=== PATIENT | female | born 1955 | race Caucasian/White ===

== ENCOUNTER 2017-04-23 22:14 | Emergency (ER) | payer OTHER ==
[2017-04-23 22:23] VITALS: BMI 41.1
--- NOTE | 2017-04-23 23:00 | PDOC ---
History of Present Illness - General History Source: Patient Exam Limitations: No Limitations - History of Present Illness Initial Comments: 04/23/17 23:13 The patient is a 61-year-old female, with a significant past medical history of HTN, who presents to the ED with two episodes of nosebleed today. First episode was in the morning and the patient went to urgent care where they checked her BP which appeared to be normal. Pt reports to the ED this evening for nosebleed as well. On exam, patient is lying down comfortably and states that she feels the blood doing down her throat. She reports headache. She denies any chest pain or shortness of breath. She does report hx of aneurysm. <Mandi Ahumada - Last Filed: 04/23/17 23:13> - General History Source: Patient <Marcus Medrano - Last Filed: 04/24/17 00:50> - General Chief Complaint: Nasal Bleeding Stated Complaint: Nasal Bleeding Time Seen by Provider: 04/23/17 22:57 Past History <Mandi Ahumada - Last Filed: 04/23/17 23:13> - Past Medical History HTN: Yes - Surgical History Abdominal Surgery: Yes Cholecystectomy: Yes - Family Disease History Family Disease History: Diabetes: Father, Mother - Psycho/Social/Smoking Cessation Hx Suicidal Ideation: No Smoking History: Never smoked Have you smoked in the past 12 months: No If you are a former smoker, when did you quit?: 2003 Information on smoking cessation initiated: No Hx Alcohol Use: No Substance Use Type: None <Marcus Medrano - Last Filed: 04/24/17 00:50> - Past Medical History Allergies/Adverse Reactions: Allergies Allergy/AdvReac Type Severity Reaction Status Date / Time No Known Allergies Allergy Verified 04/23/17 22:21 Home Medications: Ambulatory Orders Amox-Tr/K Cl [Augmentin 875Mg Tablet] 1 tab PO BID #20 tablet 04/24/17 Review of Systems - Review of Systems Able to Perform ROS?: Yes Comments:: 04/23/17 23:14 CONSTITUTIONAL: Absent: fever, no chills, no fatigue EYES: Absent: visual changes ENT: Present: nosebleed Absent: ear pain, no sore throat CARDIOVASCULAR: Absent: chest pain, no palpitations RESPIRATORY: Absent: cough, no SOB GI: Absent: abdominal pain, no nausea, no vomiting, no constipation, no diarrhea GENITOURINARY: Absent: dysuria, no frequency, no hematuria MUSKULOSKELETAL: Absent: back pain, no arthralgia, no myalgia SKIN: Absent: rash NEURO: Present: headache Absent: numbness/tingling <BrandynMandi - Last Filed: 04/23/17 23:13> *Physical Exam - Vital Signs Last Vital Signs Temp Pulse Resp BP Pulse Ox 97 H 20 131/68 96 04/23/17 22:21 04/23/17 22:21 04/23/17 22:21 04/23/17 22:21 - Physical Exam Comments: 04/23/17 23:15 GENERAL: Well-appearing, well-nourished. No apparent distress. +Morbidly obese. HEENT: Normocephalic, atraumatic. PERRL, EOM intact. CARDIOVASCULAR: Normal S1, S2. Regular rate and rhythm. PULMONARY: Clear to auscultation bilaterally. ABDOMEN: Soft, non-distended, non-tender. EXTREMITIES: Normal ROM in all four extremities. No gross deformities. SKIN: Warm, dry. No rash NEUROLOGICAL: No focal neurological deficits. <Mandi Ahumada - Last Filed: 04/23/17 23:13> - Vital Signs Last Vital Signs Temp Pulse Resp BP Pulse Ox 97 H 20 131/68 96 04/23/17 22:21 04/23/17 22:21 04/23/17 22:21 04/23/17 22:21 <Marcus Medrano - Last Filed: 04/24/17 00:50> ED Treatment Course - LABORATORY CBC & Chemistry Diagram: 04/23/17 23:15 04/23/17 23:15 <Marcus Medrano - Last Filed: 04/24/17 00:50> Medical Decision Making - Medical Decision Making 04/23/17 23:06 Dr. Mcintyre was paged an notified via phone service. <Mandi Ahumada - Last Filed: 04/23/17 23:13> - Medical Decision Making 04/24/17 00:48 Dr. Medrano: The scribe's documentation has been prepared under my direction and personally reviewed by me in its entirery. I confirm that the note above accurately reflects all work, treatment, procedures, and medical decision making performed by me. Pt found to have sinusitis on CT scan. brain is negative for pathology. Rx Augmentin 875mg po. P to be discharged. <Marcus Medrano - Last Filed: 04/24/17 00:50> *DC/Admit/Observation/Transfer - Attestations Scribe Attestion: 04/23/17 23:15 Documentation prepared by Mandi Ahumada, acting as medical art therapist for Marcus Medrano MD. <Mandi Ahumada - Last Filed: 04/23/17 23:13> - Discharge Dispostion Admit: No <Marcus Medrano - Last Filed: 04/24/17 00:50> Diagnosis at time of Disposition: Sinusitis, Nasal bleeding - Discharge Dispostion Disposition: HOME Condition at time of disposition: Stable - Prescriptions Prescriptions: Amox-Tr/K Cl [Augmentin 875Mg Tablet] 1 tab PO BID #20 tablet - Patient Instructions Printed Discharge Instructions: DI for Sinusitis, DI for Nosebleed Additional Instructions: Please follow up with Dr. Jessica today for re-evaluation. Return if any problems - Post Discharge Activity Work/School Note: Back to Work
[2017-04-23 23:21] LABS: BASOPHIL 0.6 % (0-2.0); EOSINOPHIL 1.9 % (0-4.5); MCH 24.3 pg (25.7-33.7); MCHC 31.9 g/dl (32.0-36.0); MEAN CELL VOLUME 76.1 fl (80-96); MEAN PLT VOLUME 9.2 fl (7.5-11.1); NEUTROPHILS 61.2 % (42.8-82.8); PLATELET COUNT 233 K/MM3 (134-434); RDW 14.4 % (11.6-15.6); WHITE BLOOD COUNT 8.1 K/mm3 (4.0-10.0)
[2017-04-23 23:35] LABS: INR 1.12 (0.82-1.09); PROTHROMBIN TIME (PATIENT) 12.4 SEC (9.98-11.88)
[2017-04-23 23:44] LABS: ALBUMIN 3.4 g/dl (3.4-5.0); ANION GAP 5 (8-16); BILIRUBIN,TOTAL 0.3 mg/dL (0.2-1.0); CALCIUM 8.7 mg/dL (8.5-10.1); CO2 35 mmol/L (21-32); CREATININE 0.6 mg/dL (0.55-1.02); GLUCOSE,RANDOM 94 mg/dL (74-106); SGOT/AST 18 U/L (15-37); SGPT/ALT 21 U/L (12-78); TOT PROT 7.6 g/dl (6.4-8.2)
[2017-04-23 23:45] LABS: ALK PHOS 90 U/L (45-117)
[2017-04-23] MEDS ORDERED: POTASSIUM CHLORIDE TABS 20 MEQ TABLET.ER (FP) PO ONE (23:50)
[2017-04-24] MEDS ORDERED: POTASSIUM CHLORIDE TABS 20 MEQ TABLET.ER (FP) PO ONE (00:16)
[2017-04-24] MEDS ORDERED: AMOX TR/POT CLAV 875MG/125MG TABLETS (FP) PO STA (00:46)
[2017-04-24] MEDS ORDERED: AMOX TR/POT CLAV 875MG/125MG TABLETS (FP) ONE (00:59)
[2017-04-24 01:12] VITALS: BP 155/94; PULSE 86; TEMP 97.7
== END 2017-04-24 01:13 | disposition home or self-care (01) ==
LOC: JER 22:14
DX: J32.8 Other chronic sinusitis (principal); R04.0 Epistaxis; I10 Essential (primary) hypertension
CPT/HCPCS: 36415; 70450-TC; 80053; 85025; 85610; 85730; 99282-25

== ENCOUNTER 2021-10-17 04:26 | Day surgery (SDC) | payer OTHER ==
[2021-10-12 10:44] VITALS: BMI 42.7
[2021-10-17] MEDS ORDERED: LIDOCAINE HCL 2% 100 MG/5 ML DISP.SYRIN ONE (12:44)
[2021-10-17] MEDS ORDERED: SUCCINYLCHOLINE CHLORIDE 200 MG/10 ML SYRINGE ONE (12:44)
[2021-10-17] MEDS ORDERED: PROPOFOL 20 ML ONE (12:44)
[2021-10-17] MEDS ORDERED: fentaNYL CITRATE 250 MCG/5 ML VIAL ONE (12:44)
[2021-10-17] MEDS ORDERED: MIDAZOLAM HCL 2 MG/2 ML SINGLE DOSE VIAL ONE (12:44)
[2021-10-17] MEDS ORDERED: ROCURONIUM BROMIDE 100 MG/10 ML VIAL ONE (12:44)
[2021-10-17] MEDS ORDERED: PHENYLEPHRINE HCL 10 MG/1 ML SINGLE DOSE VIAL ONE (12:45)
[2021-10-17] MEDS ORDERED: ceFAZolin SODIUM 1 GM VIAL IVPB ONE (13:20)
[2021-10-17] MEDS ORDERED: BUPIVACAINE HCL/PF 0.5% (5MG/ML) 10 ML VIAL ONE (13:38)
[2021-10-17] MEDS ORDERED: LIDOCAINE HCL 1%, 10 MG/ML (20ML VIAL) ONE (13:38)
[2021-10-17] MEDS ORDERED: ONDANSETRON 4 MG/2 ML VIAL ONE (13:40)
[2021-10-17] MEDS ORDERED: KETOROLAC TROMETHAMINE 30 MG/1 ML VIAL ONE (13:40)
[2021-10-17] MEDS ORDERED: ceFAZolin SODIUM 1 GM VIAL ONE (13:40)
[2021-10-17] MEDS ORDERED: DEXAMETHASONE SOD PHOSPHATE 4 MG/1 ML VIAL ONE (13:40)
[2021-10-17] MEDS ORDERED: BUPIVACAINE HCL/PF 0.5% (5MG/ML) 10 ML VIAL IJ ONE ×2 (13:45)
[2021-10-17] MEDS ORDERED: LIDOCAINE HCL 1%, 10 MG/ML (20ML VIAL) NR ONE ×2 (13:45)
[2021-10-17] MEDS ORDERED: oxyCODONE HCL 5 MG TABLET PO PRN ×2 (14:03)
[2021-10-17] MEDS ORDERED: ONDANSETRON 4 MG/2 ML VIAL IVPUSH PRN (14:03)
[2021-10-17] MEDS ORDERED: PROMETHAZINE HCL 25 MG/1 ML VIAL IVPUSH PRN (14:03)
[2021-10-17] MEDS ORDERED: LACTATED RINGERS SOLUTION 1,000 ML IV SCH (14:15)
[2021-10-17] MEDS ORDERED: GLYCOPYRROLATE 0.2 MG/1 ML VIAL ONE (14:49)
[2021-10-17 17:24] VITALS: TEMP 98
[2021-10-17 18:03] VITALS: BP 116/60; PULSE 88
== END 2021-10-17 18:22 | disposition home or self-care (01) ==
LOC: JASU-SURG 04:26
PROVIDERS: ATTEND Surgery
PROC: 0WUF0JZ Supplement Abdominal Wall with Synthetic Substitute, Open Approach (ICD-10-PCS; principal; 2021-10-17 12:30)
PROC: 0WQF0ZZ Repair Abdominal Wall, Open Approach (ICD-10-PCS; 2021-10-17 12:30)
DX: K43.9 Ventral hernia without obstruction or gangrene (principal); K42.9 Umbilical hernia without obstruction or gangrene
CPT/HCPCS: 94760

== ENCOUNTER 2023-05-13 04:42 | Day surgery (SDC) | payer OTHER ==
[2023-05-08 14:00] VITALS: BMI 32.9
[2023-05-13 09:05] VITALS: TEMP 97.8
[2023-05-13 09:56] VITALS: BP 121/64; PULSE 73; RESP 18
== END 2023-05-13 10:17 | disposition home or self-care (01) ==
LOC: JASU-ENDO 04:42
PROVIDERS: ATTEND Internal Medicine Gastroenterology
PROC: 0DBH8ZX Excision of Cecum, Via Natural or Artificial Opening Endoscopic, Diagnostic (ICD-10-PCS; principal; 2023-05-13 08:00)
DX: Z12.11 Encounter for screening for malignant neoplasm of colon (principal); K57.30 Diverticulosis of large intestine without perforation or abscess without bleeding; D12.0 Benign neoplasm of cecum; K64.8 Other hemorrhoids; K29.80 Duodenitis without bleeding; K21.00 Gastro-esophageal reflux disease with esophagitis, without bleeding
CPT/HCPCS: 88305-TC; 88342-TC